=== PATIENT | female | born 1945 | race American Indian/Alaskan Native ===

== ENCOUNTER → 2019-03-05 | Outpatient (CLI) | payer OTHER ==
[~2019-03-05] MED LIST: ISORDIL10 MG PO; METOPROLOL SUCC25 MG PO; NEXIUM40 MG/PACK PO; QUIL
== END | disposition home or self-care (01) ==
LOC: TOM 08:37
DX: D12.5 Benign neoplasm of sigmoid colon (principal); K56.50 Intestinal adhesions [bands], unspecified as to partial versus complete obstruction